=== PATIENT | male | born 1995 | race Caucasian/White ===

== ENCOUNTER 2023-06-25 08:14 | Inpatient (IN) ==
--- NOTE | 2023-06-09 12:02 | PAT Medication Instructions ---
Medication Instructions Date of Service June 09, 2023 Home Medications cyclobenzaprine 10 mg tablet 10 mg PO DIRECTED PRN Spasms naproxen 500 mg tablet 500 mg PO BID PRN Pain MEDICATION INSTRUCTIONS: ASK your surgeon for instructions naproxen 500 mg tablet 500 mg PO BID PRN Pain Take morning of surgery With a small sip of water, OTHERWISE NOTHING TO EAT OR DRINK AFTER MIDNIGHT: cyclobenzaprine 10 mg tablet 10 mg PO DIRECTED PRN Spasms (if needed) Take evening before surgery cyclobenzaprine 10 mg tablet 10 mg PO DIRECTED PRN Spasms (if needed) Other Notes If you have any questions please call us at [phone] or [phone] or [phone] or [phone]
--- NOTE | 2023-06-11 08:50 | Anesthesiology Consultation ---
Date of Service June 11, 2023 Assessment & Plan (1) Encounter for pre-operative examination: - medical clearance 06/24/23: "...cleared for surgery..." Chart Review Chart Review: Acceptable Risk for Surgery and Patient seen in Pre Admission Testing Teaching & Discussion Pre-Anesthesia Teaching/Discussion Notes: Instructed NPO after midnight before surgery, except medications with 15 cc of water. Medication instructions provided according to the PAT guidelines. History Surgery Operation Date: 06/25/23 10:05 Proposed Procedures p L5-S1 Decompression and Fusion, Spinal Cord Monitoring - Solomon Cooper DO Height/Weight Height: 6 ft 2 in Weight: 144.8 kg Allergies Allergy/AdvReac Type Severity Reaction Status Date / Time No Known Allergies Allergy Verified 06/06/23 14:22 Medications Home Medications Medication Instructions Recorded Confirmed Last Taken cyclobenzaprine 10 mg tablet 10 mg PO DIRECTED PRN Spasms 06/06/23 06/06/23 Unknown naproxen 500 mg tablet 500 mg PO BID PRN Pain 06/06/23 06/06/23 Unknown Past Medical History Medical History (Updated 06/11/23 @ 08:57 by Ruma Sanchez PA-C) Degenerative disc disease GERD (gastroesophageal reflux disease) rare, stable per pt Lumbar herniated disc Migraine hx-stable per pt Osteoarthritis Patient denies h/o stroke, seizures, heart attack, heart failure, DM, HTN, blood clots/DVTs or blood transfusions. Exercise / Class Metabolic Activity II 4-5 Yardwork/Stairs/Walk up hill (denies chest discomfort or shortness of breath with 1 FOS) Past Surgical History Surgical History History of surgery on arm left [place] teeth extracted Past Anesthesia History No Hx of Anesthesia Complications and No Family Hx of Anesthesia Complications History of PONV No Hx of PONV and No Hx of Motion Sickness Social History Smoking Status: Never smoker Do You Dip or Chew Tobacco: No Hx Alcohol Use: Yes Alcohol type: beer, wine and hard liquor alcohol intake frequency: a few times a week Hx Substance Use: No substance use type: does not use Review of Systems Snoring, denies witnessed apneas. Patient denies chest pain, shortness of breath, dyspnea on exertion, fever, chills, cough, wheezing, or palpitations. Physical Exam Vital Signs Vitals BP 130/88 P 93 TEMP 98.4 SP02 97% on RA RESP 18 Physical Patient standing comfortably in room in no acute distress as this improves his back pain, alert and oriented, responding appropriately throughout visit Full cervical extension range of motion without pain TMD 3.5 finger breadths Mallampati Score 3 Dentition: intact, denies chipped or loose teeth, caps/crowns, implants or bridges Lungs: normal respiratory effort. Good air movement, clear throughout to auscultation, no adventitious breath sounds Cardiac: regular rate and rhythm, no murmurs noted Carotid arteries: negative bruit bilat Lab Results Anesthesia Preop Results Results Anesthesia Widget: WBC 6.95 K/ul (4.8-10.8) 06/11/23 Hgb 14.7 g/dl (14.0-18.0) 06/11/23 Hct 42.5 % (42.0-52.0) 06/11/23 Plt 194 K/uL (130-400) 06/11/23 Na 140 mmol/L (136-145) 06/11/23 K 4.9 mmol/L (3.5-5.1) 06/11/23 Cl 106 mmol/L (98-107) 06/11/23 CO2 29 mmol/L (21-32) 06/11/23 BUN 19 mg/dl (6-23) 06/11/23 Creat 0.99 mg/dl (0.6-1.4) 06/11/23 Glucose Level 108 mg/dl (70-99(Fasting)) H 06/11/23 PT 10.1 Seconds (9.0-12.0) 06/11/23 PTT 26.8 Seconds (21.0-31.0) 06/11/23 INR 0.9 (0.9-1.1) 06/11/23 Urine Color Yellow 06/11/23 Urine Appearance Clear (Clear) 06/11/23 Urine pH 5.5 (4.5-7.5) 06/11/23 Urine Specific [place] 1.021 (1.000-1.030) 06/11/23 Urine Protein Negative (Negative) 06/11/23 Urine Glucose (UA) Negative (Negative) 06/11/23 Urine Ketones Negative (Negative) 06/11/23 Urine Blood Negative (Negative) 06/11/23 Urine Nitrite Negative (Negative) 06/11/23 Urine Bilirubin Negative (Negative) 06/11/23 Urine Urobilinogen Negative (Negative) 06/11/23 Urine Leukocyte Esterase Negative (Negative) 06/11/23 Blood Type A Negative 06/11/23 Antibody Screen NEGATIVE 06/11/23 Testing Electrocardiogram Date: 06/11/23 NSR, rate 74 bpm Chest X-Ray Date: 06/11/23 No acute cardiopulmonary findings
[~2023-06-25 08:14] MED LIST: ACETAMINOPHEN 500 MG TAB PO SCH; CeleBREX 200 MG CAP PO SCH; GABAPENTIN 900 MG DOSE PO SCH; LR 15ML/HR IV SCH; LR 60ML/HR IV SCH
--- NOTE | 2023-06-25 09:11 | History & Physical Bridge Note ---
Date of Service June 25, 2023 History & Physical Bridge Note I have examined the patient, reviewed the History & Physical and in the interval since the performance of the History & Physical I have noted the following changes of clinical significance: no changes noted
--- NOTE | 2023-06-25 09:12 | History & Physical Report ---
Date of Service June 25, 2023 Assessment & Plan (1) Lumbar disc herniation with radiculopathy: Plan: L5-S1 decompression and fusion History of Present Illness Chief Complaint: Back and leg pain Primary Care Provider: Rayshawn Kyle MD This is a 28-year-old male presents with severe back and leg pain after failing course of nonoperative care is here for surgical intervention. Allergies Allergy/AdvReac Type Severity Reaction Status Date / Time No Known Allergies Allergy Verified 06/25/23 08:40 Home Medications Medication Instructions Recorded Confirmed Type cyclobenzaprine 10 mg tablet 10 mg PO DIRECTED PRN Spasms 06/06/23 06/25/23 History naproxen 500 mg tablet 500 mg PO BID PRN Pain 06/06/23 06/25/23 History acetaminophen 500 mg tablet 1,000 mg PO Q6H PRN Pain 06/25/23 06/25/23 History ibuprofen 600 mg tablet 600 mg PO Q6H PRN Pain 06/25/23 06/25/23 History Past Med/Surg History Medical History (Updated 06/25/23 @ 09:11 by Solomon Cooper DO) Degenerative disc disease GERD (gastroesophageal reflux disease) rare, stable per pt Lumbar herniated disc Migraine hx-stable per pt Osteoarthritis Surgical History History of surgery on arm left [place] teeth extracted Social History Smoking Status: Never smoker Second Hand Exposure: No; Do You Dip or Chew Tobacco: No; Tobacco Cessation Education Requested by Patient: No Hx Alcohol Use: Yes Alcohol type: beer, wine and hard liquor Hx Substance Use: No Preferred Language: Bruneian Communication Ability: Effective 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
[2023-06-25] MEDS ORDERED: fentaNYL citrate PF 100 MCG/2 ML VIAL ONE ×2 (09:30→10:34)
[2023-06-25] MEDS ORDERED: MIDAZOLAM HCL 1 MG/ML 2ML VIAL ONE (09:30)
[2023-06-25] MEDS ORDERED: DexMEDEtomidine HCL IV 100 MCG/ML VIAL IV ONE (09:32)
[2023-06-25] MEDS ORDERED: ceFAZolin 330 MG/ML 1 GM VIAL ONE (09:33)
[2023-06-25] MEDS ORDERED: BUPIVACAINE/EPINEPHRINE 0.25% 1:200,000 30 ML VIAL ONE (09:33)
[2023-06-25] MEDS ORDERED: LABETALOL HCL IV 5 MG/ML 20ML IV PRN (10:11)
[2023-06-25] MEDS ORDERED: ATROPINE SULFATE 0.1 MG/ML 10ML SYR IV PRN (10:11)
[2023-06-25] MEDS ORDERED: FLUMAZENIL 0.1 MG/1 ML 10 ML VIAL IV PRN (10:11)
[2023-06-25] MEDS ORDERED: PROMETHAZINE HCL 12.5 MG in SODIUM CHLORIDE 0.9% 50 ML IV PRN ×2 (10:11→13:15)
[2023-06-25] MEDS ORDERED: NALOXONE HCL 0.4 MG/1 ML VIAL/CARP IV PRN ×2 (10:11→13:15)
[2023-06-25] MEDS ORDERED: ePHEDrine sulfate 50 MG/ML AMP IV PRN (10:11)
[2023-06-25] MEDS ORDERED: ONDANSETRON INJ 2 MG/ML 2 ML VIAL IV PRN ×2 (10:11→13:15)
[2023-06-25] MEDS ORDERED: FLOSEAL HEMOSTATIC MATRIX 10ML TOP ONE (10:17)
[2023-06-25] MEDS ORDERED: DEXAMETHASONE SOD INJ 4 MG/ML VIAL ONE (10:19)
[2023-06-25] MEDS ORDERED: diphenhydrAMINE 50 MG/ML VIAL ONE (10:19)
[2023-06-25] MEDS ORDERED: LIDOCAINE 2% 2 ML VIAL/AMP(20MG/ML) INFIL ONE (10:19)
[2023-06-25] MEDS ORDERED: ONDANSETRON INJ 2 MG/ML 2 ML VIAL ONE (10:19)
[2023-06-25] MEDS ORDERED: PROPOFOL IV EMULSION 10 MG/ML 20 ML VIAL IV ONE (10:19)
[2023-06-25] MEDS ORDERED: KETAMINE 50 MG/5 ML SYRINGE ONE (10:36)
[2023-06-25] MEDS ORDERED: SUGAMMADEX SODIUM 200 MG/2 ML VIAL IV ONE (11:07)
--- NOTE | 2023-06-25 11:24 | Operative Report ---
Post Operative Report Pre & Post Diagnosis Operation Date: 06/25/23 10:05 Pre-Op Diagnosis: Lumbar disc herniation with radiculopathy Morbid obesity Post-Op Diagnosis: Same I identified the patient and participated in the time-out.: Yes Procedure Operation Date: 06/25/23 10:05 Actual Procedures #1 lumbar decompression bilaterally facetectomies and foraminotomies L5-S1. #2 posterior spinal fusion L5-S1. #3 placement posterior instrumentation L5-S1. #4 interbody fusion L5-S1. #5 placement of Spira 14 x 26 mm x 2 at L5-S1. #6 placement locally harvested morselized autograft and posterior gutters. #7 placement of I factor combined with bone graft in the posterior gutters and interbody space. Surgeon Solomon Cooper, DO Funeral Home Makeup Artist Rand Le Estimated Blood Loss 300 Findings See Below The patient is 6 foot 2 weighing over 140 kg with a BMI in excess of 40. Patient's body habitus did contribute to significant technical difficulty required deepest retractors longer instruments in order to perform his procedure. This at least 50% increased operative time. Specimens None Indications This is a 28-year-old male who presents above-mentioned diagnosis of failed course of nonoperative care is here for surgical intervention. Description of Procedure Patient met with identified informed consent obtained. Patient was then taken to the operative suite underwent a patient placed in a prone position on the x table top Ranjit frame. All bony prominences well-padded eyes inspected to ensure no external thoracic spine. This point the lumbar spine was prepped and draped in a sterile fashion. Sharp dissection with the assistance of Bovie c autery to form down to expose the lamina and transverse processes of L5 and sacral ala bilaterally. From caudal to cephalad fashion complete laminectomy of L5 including bilaterally facetectomies and foraminotomies performed as well as evidence of massive disc herniation probably on the left free fragments were noted and removed. Pedicle screws were then placed in L5 and S1 levels bilaterally with assistance of fluoroscopy and appropriate sized aron placed. By way the transforaminal approach on the left discectomy was performed endplates guided to subcortical bleeding bone and a 15 x 26 mm Spira cage with I factor tapped in position. Then proceeded to the right transforaminal region completed the discectomy curetted the endplates to subcortical bleeding bone and placed a second 15 x 26 mm Spira cage with I factor into position. The rods were then compressed locked in final position bilaterally. The transverse processes of L5 and the sacral ala burred to subcortically bone. I factor combined with bone graft was placed in the posterior gutters. 15 round JOSHUA drain inserted. The incision was then closed with 1 Vicryl to fascia 2-0 Vicryl subcutaneously and 4 Monocryl for final skin closure. Steri-Strips sterile dressing placed. Patient waken taken to PACU stable condition. Please note spinal cord monitoring was utilized at the procedure no changes noted. Lastly Rand Le was present at the entire surgeon while the patient positioning complex portion of the surgery and final skin closure. I attest to the content of the Intraoperative Record and any orders documented therein. Any exceptions are noted below.
--- NOTE | 2023-06-25 11:28 | Fluoroscopy Report ---
[place] lumbar spine 2-3V CLINICAL HISTORY: L5-S1 DECOMP/FUSIONchronic low back pain COMPARISON STUDY: None FLUOROSCOPY TIME: 19.1 seconds FLUOROSCOPY IMAGES: 2 EXPOSURE DOSE: 19.66 mGy FINDINGS: Laminectomy with posterior interbody rods and screw fusion and discectomy at L5-S1. The vis ualized hardware appears intact. No unexpected opaque foreign bodies identified. IMPRESSION: Fluoroscopic assistance as above. ACT 112: Negative or not required by law. Electronically signed by: Sebastian Giraldo M.D. 06/25/2023 11:26 AM
[2023-06-25] MEDS: fentaNYL citrate PF 100 MCG/2 ML VIAL IV PRN ×4 (11:55→12:16)
[2023-06-25] MEDS: HYDROmorphone INJ 1 MG/ML SYRINGE IV PRN ×10 (12:18→21:23)
--- NOTE | 2023-06-25 12:44 | Anesthesiology Progress Note ---
Date of Service June 25, 2023 Anesthesia Post Procedure Vital Signs Vital Signs: Temp Pulse Resp BP BP Pulse Ox O2 Del Method 06/25/23 12:35 94 H 14 152/65 H 95 Nasal Cannula 06/25/23 12:25 36.8 C 100 H 13 152/112 H 96 Nasal Cannula 06/25/23 12:15 36.8 C 100 H 15 157/95 H 94 Nasal Cannula 06/25/23 12:05 95 H 12 164/103 H 96 Nasal Cannula 06/25/23 11:55 97 H 17 143/90 H 97 Oxymask 06/25/23 11:45 100 H 13 142/100 H 98 Oxymask 06/25/23 11:39 36.3 C L 92 H 12 143/90 H 98 Oxymask 06/25/23 08:57 163/105 H 06/25/23 08:38 36.9 C 97 H 20 146/122 H 98 Room Air O2 Flow Rate 06/25/23 12:35 2 06/25/23 12:25 2 06/25/23 12:15 2 06/25/23 12:05 2 06/25/23 11:55 4 06/25/23 11:45 4 06/25/23 11:39 6 06/25/23 08:57 06/25/23 08:38 Pain Intensity Left Leg: Pain Intensity: 8 Lower Back: Pain Intensity: 5 Transfer of Care Handoff Completed per policy Notes Mental Status: alert / awake / arousable Patient Amnestic to Procedure: Yes Nausea / Vomiting: adequately controlled Pain: adequately controlled Airway Patency, RR, SpO2: stable & adequate BP & HR: stable & adequate Hydration State: stable & adequate Anesthetic Complications: no major complications apparent
[2023-06-25] MEDS ORDERED: diphenhydrAMINE Capsule 25 MG CAP PO PRN (13:15)
[2023-06-25] MEDS ORDERED: bisacodyL 10 MG SUPP PR PRN (13:15)
[2023-06-25] MEDS ORDERED: HYDROmorphone INJ 0.5 MG/0.5 ML SYR IV PRN (13:15)
[2023-06-25] MEDS ORDERED: MAGNESIUM HYDROXIDE SUSP 30 ML UDC PO PRN (13:15)
[2023-06-25] MEDS ORDERED: ACETAMINOPHEN 1,000 MG/100 ML VIAL IV PRN (13:15)
[2023-06-25] MEDS ORDERED: ONDANSETRON 4 MG OD TAB PO PRN (13:15)
[2023-06-25] MEDS ORDERED: DO NOT ADMINISTER PNEUMOCOCCAL VACCINE PRN (13:15)
[2023-06-25] MEDS ORDERED: DO NOT ADMINISTER FLU VACCINE PRN (13:15)
[2023-06-25] MEDS ORDERED: SOD PHOSPHATE/SOD BIPHOSPHATE ENEMA 132 ML BTL PR PRN (13:15)
[2023-06-25] MEDS ORDERED: METOCLOPRAMIDE HCL INJ 5 MG/ML 2 ML VIAL IV PRN (13:15)
[2023-06-25] MEDS ORDERED: FAMOTIDINE 20 MG TAB PO PRN (13:15)
[2023-06-25] MEDS ORDERED: LORazepam 0.5 MG TAB PO PRN ×2 (13:15→14:23)
[2023-06-25] MEDS ORDERED: hydrOXYzine HCl 25 MG TAB PO PRN (13:15)
[2023-06-25] MEDS ORDERED: ACETAMINOPHEN 500 MG TAB PO PRN (13:15)
[2023-06-25] MEDS ORDERED: LORazepam 2 MG/1 ML VIAL IV PRN (13:15)
[2023-06-25] MEDS ORDERED: ALUMINUM/MAGNESIUM SUSP 30 ML UDC PO PRN (13:15)
[2023-06-25] MEDS: LACTATED RINGER'S 1,000 ML IV SCH ×2 (13:53→21:11)
[2023-06-25] MEDS ORDERED: CYCLOBENZAPRINE HCL 10 MG TAB PO SCH (14:00)
[2023-06-25] MEDS: KETOROLAC 30 MG/ML VIAL IV SCH ×2 (14:04→18:42)
[2023-06-25] MEDS: ceFAZolin 2000MG 2,000 MG/15 ML SYR IV SCH (17:21)
[2023-06-25] MEDS: DOCUSATE SODIUM/SENNA 50/8.6MG TAB PO SCH (20:00)
[2023-06-25] MEDS: oxyCODONE HCL IR 5 MG TAB (IMMEDIATE RELEASE) PO PRN (20:09)
[2023-06-26] MEDS: KETOROLAC 30 MG/ML VIAL IV SCH ×2 (00:36→06:18)
[2023-06-26] MEDS: ceFAZolin 2000MG 2,000 MG/15 ML SYR IV SCH (00:37)
[2023-06-26] MEDS: oxyCODONE HCL IR 5 MG TAB (IMMEDIATE RELEASE) PO PRN ×5 (00:44→22:31)
[2023-06-26] MEDS: LACTATED RINGER'S 1,000 ML IV SCH (03:55)
[2023-06-26] MEDS: HYDROmorphone INJ 1 MG/ML SYRINGE IV PRN (04:01)
[2023-06-26] MEDS: POLYETHYLENE (MIRALAX) 17 GM PACK PO SCH ×3 (05:56→17:48)
[2023-06-26 06:47] LABS: Basophils # (auto) 0.04 K/uL (0.00-0.20); Basophils % (auto) 0.4 %; Eosinophils # (auto) 0.06 K/uL (0.00-0.50); Eosinophils % (auto) 0.6 %; Hematocrit (blood only) 34.9 % (42.0-52.0); Hemoglobin 12.2 g/dl (14.0-18.0); Immature Granulocytes # (auto) 0.04 K/uL (0.01-0.20); Immature Granulocytes % (auto) 0.4 %; Lymphocytes # (auto) 2.04 K/uL (1.20-3.40); Lymphocytes % (auto) 21.6 %; Mean Corpuscular Hemoglobin 32.4 pg (25.0-34.0); Mean Corpuscular Volume 92.8 fL (80.0-100.0); Mean Platelet Volume 10.3 fL (9.4-12.4); Monocytes # (auto) 0.59 K/uL (0.11-0.59); Monocytes % (auto) 6.3 %; Neutrophils # (auto) 6.67 K/uL (1.40-6.50); Neutrophils % (auto) 70.7 %; Platelet Count 207 K/uL (130-400); RDW Coefficient of Variation 11.9 % (11.5-14.5); RDW Standard Deviation 40.7 fL (36.4-46.3); Red Blood Count 3.76 M/uL (4.70-6.10); White Blood Count 9.44 K/ul (4.8-10.8)
[2023-06-26 07:12] LABS: Calcium 8.5 mg/dl (8.6-10.3); Creatinine Clr Calc Pharmacy 162.1 ml/min; Est GFR (African American) 116.5 ml/min; Est GFR (Non-African American) 100.6 ml/min; Potassium 3.8 mmol/L (3.5-5.1)
[2023-06-26] MEDS: dexAMETHasone 6 MG in SYRINGE 0 ML IV SCH (08:12)
--- NOTE | 2023-06-26 08:32 | Orthopedic Progress Note ---
Date of Service June 26, 2023 Assessment & Plan (1) Lumbar disc herniation with radiculopathy: Plan: This time we will initiate physical therapy monitor his JOSHUA operatively discharge home in the next few days. Admission and Anticipated Discharge Date Admission Date: June 25, 2023 Subjective Back pain controlled leg pain markedly improved Physical Exam Physical Exam: Patient is in the chair at the bedside. Is comfortable. Is constricted testing. Results & Data Vital Signs (Past 12 Hours) Vital Signs Temp Pulse Resp BP BP Pulse Ox O2 Del Method 06/26/23 07:42 36.6 C 73 18 165/85 H 98 Room Air 06/26/23 03:18 36.5 C 79 16 153/78 H 99 Nasal Cannula 06/25/23 23:01 36.9 C 91 H 16 133/84 97 Nasal Cannula 06/25/23 22:22 87 94 Nasal Cannula O2 Flow Rate 06/26/23 07:42 06/26/23 03:18 2.0 06/25/23 23:01 2.0 06/25/23 22:22 2 Queries Orthopedic Spine Obesity: Yes
[2023-06-26] MEDS: traMADol HCL 50 MG TABLET PO PRN ×2 (10:35→17:48)
[2023-06-26] MEDS: DOCUSATE SODIUM/SENNA 50/8.6MG TAB PO SCH (21:05)
[2023-06-27] MEDS: oxyCODONE HCL IR 5 MG TAB (IMMEDIATE RELEASE) PO PRN ×2 (02:35→07:47)
[2023-06-27] MEDS: dexAMETHasone 6 MG in SYRINGE 0 ML IV SCH (08:24)
--- NOTE | 2023-06-27 09:58 | Discharge Summary ---
Date of Service June 27, 2023 Admission HPI Per Admitting Provider This is a 28-year-old male presents with severe back and leg pain after failing course of nonoperative care is here for surgical intervention. Principal Diagnosis Lumbar disc herniation with radiculopathy Discharge Data Allergies Allergy/AdvReac Type Severity Reaction Status Date / Time No Known Allergies Allergy Verified 06/25/23 08:40 Procedures Performed Operation Date: 06/25/23 10:05 Actual Procedures p L5-S1 Decompression and Fusion, Spinal Cord Monitoring(Not Applicable) - Solomon Cooper DO Ordered Studies 06/25/23 [place] lumbar spine 2-3V Routine Hospital Course (1) Lumbar disc herniation with radiculopathy: Patient underwent lumbar decompression fusion tolerated this well was taken to orthopedic floor. Labored postop day 1 is up and ambulating progress postop day #2. JOSHUA drain decreasing appropriate. Excellent strength testing. Pain well controlled. Simply discharged home. Discharge orders and instructions found in chart for further review. Total Time Total Time Spent Total Time Spent (In Minutes): 20 minutes Discharge Plan Discharge Items Patient Disposition: Home - Self-Care Reason For Visit: Interverterbral Disc Disorders with Radiculopathy, Discharge Diagnosis: Lumbar spinal stenosis with disc herniation and radiculopathy Activity: As commented below Non-emergency contact: Primary Care Provider Call non-emergency contact if: you have any medication questions Follow-up/Referrals: Rayshawn Kyle MD [Primary Care Provider] - Diet: Regular Addtl Attending Provider Instructions: ACTIVITY RECOMMENDATIONS: SELF CARE INSTRUCTIONS AFTER THORACIC/LUMBAR FUSIONS 1. You may walk to your tolerance. It is good exercise for your legs and back. Expect some back and intermittent leg aches and pains. 2. You may perform "counter-top" level activities (make a sandwich, nory with a project, etc.). 3. No bending or lifting of more than 10 pounds or back twisting of any nature (roll like a log when turning in bed). 4. You may ride in a car for 20-30 minutes at a time. No driving until after your first visit with your doctor. 5. Frequent changes of position and restricting sitting to 30 minutes at a time will help limit the amount of back spasms and stiffness you may experience. 6. You may discontinue the use of ambulatory aids (cane, crutches, etc.) once your strength and confidence allow. 7. You may aircraft engine mechanic the shower and let water strike your incision when you arrive home at least once daily. Do not take a tub bath, sit in a hot tub or go into a swimming pool until after your first recheck in the office. SPECIAL CARE INSTRUCTIONS: VERY IMPORTANT TO READ AND REVIEW A. Your surgical incision has been closed with a cosmetic suture under the skin that will dissolve in about 6 weeks. In 14 days, you can use a pair of clean scissors and cut the suture that is left outside of the skin at the ends of your incision. 1. The small skin tapes can be removed 7 days after surgery if they have not fallen off by that point. 2. You may keep the wound open to air as much as possible to promote healing after post-op day number 5 unless told otherwise by your doctor. 3. If you think the wound looks like it is becoming infected (redness or worsening drainage) and/or you are experiencing fever, chill or worsening back pain and muscle spasms, contact the office so that we may evaluate you as soon as possible. B. Complications are uncommon, but please contact us if you have any signs or s ymptoms of: 1. wound infection (fever higher than 102.5 degrees F, redness, separation of wound, drainage, or increasing pain from the incision) 2. blood clots in legs (pain, swelling, redness and warmth in legs) 3. urinary tract infection (fever higher than 102.5 degrees F, burning upon urination or increased frequency of urination) 4. nerve problems (inability to walk on your toes or heels, numbness, loss of bowel or bladder control) 5. any other symptoms that concern you C. Please call the office at if you have any concerns or questions about your operation or recovery. D. No smoking! Smoking drastically decreases the chance of a solid fusion. E. Do not take any anti-inflammatory medications (Indocin, Advil, Motrin, Aspirin, Naprosyn, etc.) as these may inhibit the chance of a solid fusion. Tylenol is okay to take for pain. MANAGING PAIN AFTER SPINAL SURGERY 1. Narcotic medication is intended for short-term use and will be provided for surgical pain. Surgical pain usually lasts for a period of 4-6 weeks. Narcotic medication includes Percocet, Vicodin, Darvocet, Tylenol #3 or Lortab. 2. Longer-term pain is more appropriately treated with non-narcotic medication such as Tylenol ES. 3. Muscle spasm is not appropriately treated with narcotics. Muscle relaxers such as Soma, Flexeril or Skelaxin can be used along with Tylenol ES. 4. Remember that we all live with some "aches and pains". This is not unusual or uncommon after an injury or as we get older. a. Back pain is expected and may include muscle spasms for 4 to 6 weeks after surgery. The pain should gradually improve. If the pain worsens for no apparent reason, please contact the office. b. Intermittent leg pain may also be experienced and should not be concerned about unless it worsens for no apparent reason. If so, please contact the office. 5. We will provide appropriate medication within the normal guidelines of their prescribed use. We will also be very cautious and aware of potential abuse and extended duration of patients' medication needs. a. Pain medications are for your comfort and to assist with sleep and rest so that the tissue can heal. They are not provided in order to return to normal activity and should not be used through the day. To do so or worsening pain at night can result from ongoing tissue damage and development of tolerance to the prescribed medicine. 6. Please allow 2-3 days to process refills. Prescriptions will not be mailed but must be picked up at the office. FOLLOW UP VISIT: Keep your scheduled follow-up appointment. Any questions, please call the office at . Pending Studies at Discharge: No Stand-Alone Forms: My [facility] [address], Smoking Cessation Medications and DC Order Prescriptions: New tramadol 50 mg tablet 50 mg PO Q6H PRN (Reason: pain, moderate) Qty: 30 0RF oxycodone 5 mg tablet 5 mg PO Q6H PRN (Reason: pain) Qty: 30 0RF Continued cyclobenzaprine 10 mg Tablet 10 mg PO DIRECTED PRN (Reason: Spasms) naproxen 500 mg Tablet 500 mg PO BID PRN (Reason: Pain) acetaminophen 500 mg Tablet 1,000 mg PO Q6H PRN (Reason: Pain) ibuprofen 600 mg Tablet 600 mg PO Q6H PRN (Reason: Pain) Discharge Orders: Discharge Order (Routine); Ordered 06/27/23 Ordered By: Solomon Cooper Admission Data Admit Date/Time: 06/25/23 11:28 Attending Provider: Solomon Cooper Admit Provider: Solomon Cooper Primary Care Provider: Rayshawn Kyle
[2023-06-27] MEDS: traMADol HCL 50 MG TABLET PO PRN (10:44)
== END 2023-06-27 11:50 | disposition home or self-care (01) | DRG 454 ==
LOC: ASU 08:14 → PACUINP 11:28 → 3E 13:53